=== PATIENT | female | born 1940 | race Caucasian/White ===

== ENCOUNTER 2018-12-08 20:47 | Emergency (ER) | payer MEDICARE ==
[~2018-12-08] VITALS: Ht 160 cm; Wt 95.3 kg
[~2018-12-08 20:47] MED LIST: ADVAIR HFA 115-12 GM; AMITRIPTYLINE H10 MG PO; AMITRIPTYLINE H25 MG PO; BYSTOLIC5 MG PO; DEXILANT60 MG PO; DYMISTA NASAL S23 GM; FISH OIL PO; METAMUCIL PO; Z.0.BYSTOLIC5 MG PO; Z.0.DEXILANT60 MG PO; [UNRECOGNIZED DRUG - CODE] IH
--- OUTSIDE RECORDS SUMMARY | 2018-12-08 20:49 | XMS REPORT | Clinical Summary ---
Author Author [facility] Organization [facility] Address Unknown Phone Unavailable Care Team Providers Care Service Superintendent Name Role Phone Osmar Dunbar MD PCP Allergies Comments Active Allergy Reactions Severity Noted Date Azithromycin 04/14/2017 Clonazepam 04/14/2017 Doxycycline rashes Gemifloxacin 04/14/2017 Humibid Meloxicam 04/14/2017 DEXOCOLOYINE, HUMBID Other 04/14/2017 Metoclopramide Hcl 04/14/2017 Shellfish Derived Anaphylaxis High 04/14/2017 Medications End Date Status Medication Sig Dispensed Refills Start Date Active BYSTOLIC 5 mg tablet TK 1 T PO D 2 8 Active HYDROcodone-acetaminophen TK 1 T PO Q 4 0 (NORCO) 10-325 mg per H 8 tablet Active celecoxib (CeleBREX) 200 TK 1 C PO BID 2 MG capsule WC 8 Active levocetirizine (XYZAL) 5 levocetirizin 0 MG tablet e 5 mg tablet Active gabapentin (NEURONTIN) gabapentin 0 300 mg capsule 300 mg capsule Active zolpidem (AMBIEN) 5 MG take 1 tablet 0 tablet at bedtime as needed for sleep Active ondansetron (ZOFRAN) 4 MG TAKE 1 TABLET 0 tablet PO Q8HRS PRN N/V Active naloxegol (MOVANTIK) 25 take 1 tablet 0 mg tablet tablet every morning 1 hr before breakfast on empty stomach for constipation Active diclofenac (FLECTOR) 1.3 Apply 1 patch 0 % patch 12 hour twice a day by transdermal route. Active nortriptyline (PAMELOR) nortriptyline 0 25 MG capsule 25 mg capsule Active montelukast (SINGULAIR) montelukast 0 10 mg tablet 10 mg tablet Active methylPREDNISolone methylprednis 0 (MEDROL DOSEPAK) 4 mg olone 4 mg tablet tablets in a dose pack Active azelastine-fluticasone Dymista 137 0 (DYMISTA) 137-50 mcg-50 mcg/spray mcg/spray spray,non-aerosol nasal spray Active dexlansoprazole Dexilant 60 0 (DEXILANT) 60 mg capsule mg capsule, delayed release Active cyclobenzaprine cyclobenzapri 0 (FLEXERIL) 10 mg tablet ne 10 mg tablet Active ciprofloxacin HCl (CIPRO) ciprofloxacin 0 250 MG tablet 250 mg tablet Active acetaminophen-codeine acetaminophen 0 (TYLENOL WITH CODEINE #3) 300 300-30 mg per tablet mg-codeine 30 mg tablet Active psyllium husk (METAMUCIL) Metamucil 0 0.4 gram capsule Active lansoprazole (PREVACID) Take 15 mg by 0 15 MG capsule mouth daily. Active Problems Problem Noted Date Osteoarthritis of right hip 05/16/2018 Arthropathy of left shoulder 07/28/2017 Degeneration of lumbar intervertebral disc 05/11/2017 Osteoarthritis of hip 05/11/2017 Arthropathy of right hip 05/09/2017 Cervical spondylosis without myelopathy 05/09/2017 Brachial neuritis 04/28/2017 Carpal tunnel syndrome 04/28/2017 Abnormal finding of trunk 04/28/2017 Displacement of cervical intervertebral disc without myelopathy 04/28/2017 Enthesopathy of hip region 04/28/2017 Enthesopathy of knee 04/28/2017 Fibromyositis 04/28/2017 Idiopathic progressive polyneuropathy 04/28/2017 Inflammatory disorder of extremity 04/28/2017 Lumbosacral spondylosis without myelopathy 04/28/2017 Lumbar spondylosis with myelopathy 04/28/2017 Meralgia paresthetica 04/28/2017 Morbid obesity 04/28/2017 Neuralgia 04/28/2017 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 04/28/2017 Disorder of sacroiliac joint 04/28/2017 Trigeminal neuralgia 04/28/2017 Cervical radiculopathy 04/15/2017 Encounters Care Team Description Date Type Specialty Austin Hood MD Primary osteoarthritis of right hip (Primary Dx) 09/06/2018 Lab Lab Edmond Deal MD 05/16/2018 Anesthesia Orthopedic Surgery Event Austin Hood MD RIGHT TOTAL HIP ARTHROPLASTY 05/16/2018 Surgery Orthopedic Surgery Austin Hood MD Primary osteoarthritis of right hip 05/16/2018 Hospital Orthopedic Surgery - Encounter 05/17/2018 after 12/07/2017 Family History Medical History Relation Name Comments Asthma Brother Cancer Brother Arthritis Mother Heart disease Mother Relation Name Status Comments Brother Mother Social History Date Tobacco Use Types Packs/Day Years Used Never Smoker Smokeless Tobacco: Never Used Drinks/Week oz/Week Comments Alcohol Use No Sex Assigned at Date Recorded Not on file Industry Job Start Date Occupation Not on file Not on file Not on file Travel End Travel History Travel Start No recent travel history available. Last Filed Vital Signs Reading Time Taken Comments Vital Sign 117/69 05/17/2018 9:03 AM [employer] Blood Pressure 80 05/17/2018 9:03 AM [employer] Pulse 36.3 C (97.3 F) 05/17/2018 9:02 AM [employer] Temperature 17 05/17/2018 9:02 AM [employer] Respiratory Rate 92% 05/17/2018 9:03 AM [employer] Oxygen Saturation - - Inhaled Oxygen Concentration 91.6 kg (202 lb) 05/16/2018 10:51 AM [employer] Weight 157.5 cm (5' 2") 05/16/2018 10:51 AM [employer] Height 36.95 05/16/2018 10:51 AM [employer] Body Mass Index Plan of Treatment Health Maintenance Due Date Last Done Comments COLONOSCOPY SCREENING 1992 SHINGLES VACCINES (#1) 1992 65+ PNEUMOCOCCAL VACCINE 09/10/2007 (1 of 2 - PCV13) INFLUENZA VACCINE 11/09/2018 Implants Device Identifier Shelf Expiration Date Model / Serial / Lot Implanted Type Area Manufactur er 100-0001 / / [employer] Fee Posterior Hip N/A: N/A Implanted: Qty: 1 on 05/16/2018 by Implant Austin Hood MD at [facility] 11/14/2027 11 [id number] / / [id number] Head Fml Tpr I Modlr W/O Skirt Hip Joint Right: Hip [employer] Co-Cr 36x-6mm - [id number] Implants Implanted: Qty: 1 on 05/16/2018 by Austin Hood MD at [facility] 02/10/2028 [id number] / / [id number] 3 Hole G7 [place] Acetabular Shell IPM Right: Hip BIOMET, - [id number] [employer]PL[employer] Implanted: Qty: 1 on 05/16/2018 by DEVICES Austin Hood MD at [facility] 02/22/2023 [id number] / / [id number] Liner G7 Neutral Arcomxl F36 - IPM Right: Hip BIOMET, [id number] [employer]PL[employer] Implanted: Qty: 1 on 05/16/2018 by Austin Contreras MD at [facility] 02/10/2028 [id number] / / [id number] Tprlc 133 Type1 Pps Ho 10.0, IPM Right: Hip BIOMET, [place] Complete Stem - [id number] [employer] Implanted: Qty: 1 on 05/16/2018 by Austin Contreras MD at [facility] 01/09/2028 [id number] / / [id number] Screw Bone Slf-Tap 6.5x25mm Trilogy Orthopedic Right: Hip [employer] - [id number] Trauma Implanted: Qty: 1 on 05/16/2018 by Implants Austin Hood MD at [facility] Procedures Comments Procedure Name Priority Date/Time Associated Diagnosis C-REACTIVE PROTEIN Routine 09/06/2018 Primary osteoarthritis of 11:30 AM CDT right hip HC COMPLETE BLD COUNT Routine 09/06/2018 Primary osteoarthritis of W/AUTO DIFF 11:30 AM CDT right hip SEDIMENTATION RATE Routine 09/06/2018 Primary osteoarthritis of 11:30 AM CDT right hip ND AN SPINAL BLOCK Routine 05/18/2018 POST-OP PAIN 9:52 AM [employer] Procedure Note - Edmond Deal - 05/18/2018 9:52 AM [employer] Spinal Block Performed by: Edmond Deal MD Authorized by: Edmond Deal MD Patient Location: Pre-op Start Time: 05/18/2018 12:10 PM End Time: 05/18/2018 12:15 PM Reason for Block: at surgeon's request, post-op pain management Staff: Anesthesio logist: Edmond Deal MD Performed by: Anesthesio logist Preprocedu re: patient identified , IV checked, site and side verified, risks and benefits discussed, procedure verified, surgical consent complete, patient position confirmed, monitors and equipment checked and pre-op evaluation complete TIme Out Performed: 05/18/2018 12:10 PM Spinal Block: Patient Position: Sitting Prep: Betadine Monitoring : Continuous pulse oximetry, blood pressure monitoring and heart rate Approach: Right paramedian Interspace : L3-4 Injection Technique: Single injection Needle: Needle Type: Pencil-tip Needle Gauge: 25 G Catheter Type: Open end Assessment : Block assessment : No apparent complicati ons and patient tolerated procedure well Post procedure: Patient returned to supine position HC COMPLETE BLD COUNT Routine 05/17/2018 W/AUTO DIFF 5:00 AM [employer] POC GLUCOSE Routine 05/16/2018 2:26 PM [employer] XR PELVIS 1 OR 2 VW Routine 05/16/2018 2:02 PM [employer] SURGICAL PATHOLOGY Routine 05/16/2018 REQUEST 1:55 PM [employer] ND AN ELECTIVE Routine 05/16/2018 ENDOTRACHEAL AIRWAY 1:02 PM [employer] Procedure Note - Kt Morgan CRNA - 05/16/2018 1:02 PM [employer] ANESTHESIA INTUBATION Date/Time: 05/16/2018 12:39 PM Performed by: Kt Morgan CRNA Authorized by: Edmond Deal MD Location: OR Urgency: Elective Difficult Airway: No Preoxygena raysa with 100% O2: Yes C-spine Precaution s Maintained Throughout : Yes Mask Ventilatio n: Easy mask Final Airway Type: Endotrache al airway Final Endotrache al Airway: ETT Cuffed: Yes Technique Used: Video laryngosco py Devices/Me thods Used in Placement: Intubatin g stylet Insertion Site: Oral Blade Type: Bisi Laryngosco pe Blade/Vide olaryngosc ope Blade Size: 3 ETT Size (mm): 7.0 Cuff at minimum occlusion pressure: Yes Measured from: Lips ETT to Lips (cm): 21 Placement Verified by: CO2 detection, direct visualizat ion and equal breath sounds Laryngosco pic view: Grade I - full view of glottis Rapid Sequence Induction (RSI): No Modified RSI: No Number of Attempts at Approach: 1 ARTHROPLASTY, HIP, TOTAL 05/16/2018 Primary osteoarthritis of 12:31 PM [employer] right hip Case Notes [employer] Special Needs [employer] POC GLUCOSE Routine 05/16/2018 11:20 AM [employer] TYPE AND SCREEN Routine 05/16/2018 10:44 AM [employer] after 12/07/2017 Results * Sedimentation rate (09/06/2018 11:30 AM CDT) Sedimentation 34 (H) 0 - 20 mm/hr [facility] Specimen Blood Performing Organization Address City/[facility]/Zipcode Phone Number [facility] DEPARTMENT OF [address] [place] [address] PATHOLOGY AND GENOMIC MEDICINE [address] * CBC with platelet and differential (09/06/2018 11:30 AM CDT) Only the most recent of 2 results within the time period is included. WBC 5.66 4.50 - 11.00 k/uL [facility] RBC 4.20 4.20 - 5.50 m/uL [facility] HGB 12.2 12.0 - 16.0 g/dL [facility] HCT 39.5 37.0 - 47.0 % [facility] MCV 94.0 82.0 - 100.0 fL [facility] MCH 29.0 27.0 - 34.0 pg [facility] MCHC 30.9 (L) 31.0 - 37.0 g/dL [facility] RDW - SD 47.4 37.0 - 55.0 fL [facility] MPV 9.6 8.8 - 13.2 fL [facility] Platelet count 200 150 - 400 k/uL [facility] Nucleated RBC 0.00 /100 WBC [facility] Neutrophils 62.2 39.0 - 69.0 % [facility] Lymphocytes 25.4 25.0 - 45.0 % [facility] Monocytes 8.8 0.0 - 10.0 % [facility] Eosinophils 2.8 0.0 - 5.0 % [facility] Basophils 0.4 0.0 - 1.0 % [facility] Immature 0.4Comment: "Immature 0.0 - 1.0 % [place] granulocytes granulocytes" (promyelocytes, [facility] myelocytes, metamyelocytes) [facility] Specimen Blood Performing Organization Address City/[facility]/Zipcode Phone Number [facility] [place] [address] PATHOLOGY AND GENOMIC MEDICINE [place] [facility] [address] [place] [address] * C-reactive protein (09/06/2018 11:30 AM CDT) [facility] CRP 0.55 (H) 0.00 - 0.50 mg/dL [facility] Specimen Plasma specimen Performing Organization Address City/[facility] Phone Number [facility] [place] [address] PATHOLOGY AND GENOMIC MEDICINE [address] * POC glucose (05/16/2018 2:26 PM [employer]) Only the most recent of 2 results within the time period is included. [facility] POC glucose 125 (H) 65 - 99 mg/dL [place] Comment: [facility] No Action Needed HOSPITAL Meter ID: [id number] Proof Coins Inspector: Adrian Herrera Specimen Performing Organization Address [facility] Phone Number [facility] [place] [address] PATHOLOGY AND GENOMIC MEDICINE [address] * XR Pelvis 1 Or 2 Vw (05/16/2018 2:02 PM [employer]) Specimen Narrative Performed At EXAMINATION:XR PELVIS 1 OR 2 VW [facility] INDICATION: COMPARISON:None IMPRESSION: 1.Intraoperative radiographs for a right total hip arthroplasty in progress. [facility]-[id number] Procedure Note Hm Interface, Radiology Results Incoming - 05/16/2018 2:07 PM [employer] EXAMINATION: XR PELVIS 1 OR 2 VW INDICATION: COMPARISON:None IMPRESSION: 1. Intraoperative radiographs for a right total hip arthroplasty in progress. [facility]-[id number] Performing Organization Address City/[facility]/Zipcode Phone Number [facility] [address] [place] [address] * Surgical pathology request (05/16/2018 1:55 PM [employer]) [facility] DEPARTMENT OF PATHOLOGY AND GENOMIC MEDICINE Surgical See link below for PDF Lab [facility] DEPARTMENT pathology Report OF PATHOLOGY report AND GENOMIC MEDICINE Result status This is Final Report for [facility] DEPARTMENT [id number] OF PATHOLOGY AND GENOMIC MEDICINE Specimen Performing Organization Address City/State/Zipcode Phone Number [facility] DEPARTMENT OF [address] [place] [address] PATHOLOGY AND GENOMIC MEDICINE * Type and screen (05/16/2018 10:44 AM [employer]) ABO grouping O [facility] Rh type POS [facility] Antibody screen NEG [place] (gel) [facility] Specimen Blood Performing Organization Address City/State/Zipcode Phone Number [facility] DEPARTMENT OF [address] [place] [id number] PATHOLOGY AND GENOMIC MEDICINE [address] [address] HOSPITAL after 12/07/2017 Insurance Type Payer Benefit Subscriber ID Effective Phone Address Plan / Dates Group Medicare MEDICARE MEDICARE xxxxxxxxxxx 2007-P [place], PART A AND resent [place] B Commercial AARP AARP xxxxxxxxxxx 2016-P SUPPLEMENT resent Liability Advance Directives For more information, please contact: [phone] Patient Museum Curator Explanation Type Date Recorded Advance Directives, 05/16/2018 8:51 AM Living Will and Medical Power of Search Director
[2018-12-08] MEDS ORDERED: MORPHINE SULFATE 2 MG/ML SYR 1ML IV ONE (21:05)
[2018-12-08] MEDS ORDERED: ONDANSETRON HCL INJ 2MG/ML 2ML 2 MG/ML VIAL IV ONE (21:05)
[2018-12-08] MEDS ORDERED: ONDANSETRON HCL INJ 2MG/ML 2ML 2 MG/ML VIAL ONE (21:26)
[2018-12-08] MEDS ORDERED: MORPHINE SULFATE INJ 4 MG/ML INJ 1ML ONE (21:27)
[2018-12-08] MEDS ORDERED: DIPHENHYDRAMINE HCL INJ 50 MG/ML VIAL IV ONE (21:30)
[2018-12-08] MEDS ORDERED: METHYLPREDNISOLONE SOD SUCC 125 MG/2ML VIAL IV ONE (21:30)
[2018-12-08] MEDS ORDERED: SODIUM CHLORIDE 0.9% 50ML 50 ML ONE (21:33)
[2018-12-08] MEDS ORDERED: IOPAMIDOL 370 MG/ML 200 ML INFUS..BTL INJ ONE (21:33)
[2018-12-08] MEDS ORDERED: METHYLPREDNISOLONE SOD SUCC 125 MG/2ML VIAL ONE (21:53)
--- NOTE | 2018-12-08 23:11 | Diagnostic Imaging Report ---
EXAMINATION: CT of the chest, abdomen and pelvis with contrast. TECHNIQUE: Spiral CT images of the chest, abdomen and pelvis were performed from the lung apices to the lesser trochanters after the intravenous administration of 100 cc Isovue-370.. Coronal and sagittal reformatted images were obtained. The chest was scanned using pulmonary embolus protocol COMPARISON: None. CLINICAL HISTORY:Left-sided chest and abdominal pain DISCUSSION: CHEST: Vasculature: The main pulmonary artery, right and left pulmonary arteries, and their visualized lobar and segmental branches are patent, without filling defect. The pulmonary outflow tract is of normal caliber. There is no ectasia or aneurysmal dilatation of the thoracic aorta. Great vessel origins are of normal caliber and configuration. LUNGS AND AIRWAYS: There are patchy groundglass opacities with intervening regions of hyperlucency compatible with diffuse air trapping. 5 mm left upper lobe nodule seen on series 4 image 42. 4 mm left lower lobe nodule seen on series 4 image 74. 4 mm right lower lobe nodule seen on series 4 image 87. Trachea, mainstem bronchi, and central lobar and segmental bronchi are patent. PLEURA: No pleural effusion or pneumothorax. HEART AND MEDIASTINUM: 1.7 cm heterogeneous nodule in the right thyroid lobe. No axillary, hilar, or mediastinal lymphadenopathy. Mild cardiomegaly without pericardial effusion. LYMPH NODES: No significant mediastinal, hilar or axillary lymphadenopathy is seen. BONES AND SOFT TISSUES: Osseous structures are discussed below. ABDOMEN/PELVIS: HEPATOBILIARY:No focal hepatic lesion or intrahepatic biliary ductal dilatation. The gallbladder has been removed. SPLEEN: No splenomegaly. PANCREAS: No focal masses or ductal dilatation. ADRENALS: No adrenal nodules. KIDNEYS/URETERS: No hydronephrosis, stones, or solid mass lesions. PELVIC ORGANS/BLADDER: The urinary bladder is incompletely distended and poorly evaluated. Excreted contrast material opacifies the dependent portion. Evaluation of the pelvic viscera is markedly limited secondary to extensive streak artifact from right hip prosthesis. PERITONEUM/RETROPERITONEUM: No free air or fluid. LYMPH NODES: No pelvic sidewall, retroperitoneal, or mesenteric lymphadenopathy. VESSELS: The abdominal aorta, major branch vessels, and iliac arterial systems are patent with mild atherosclerotic calcification. Portal vein, splenic vein, and central superior mesenteric vein are patent. GI TRACT: The large bowel shows no evidence of distention or wall thickening. Gas and fecal material are noted throughout. The appendix is normal. There is no small bowel dilatation to suggest obstruction. BONES AND SOFT TISSUES: Postsurgical changes of total right hip arthroplasty. The bones are diffusely osteopenic with multilevel degenerative disc changes and facet arthropathy of the lumbar spine. Similarly, degenerative disc changes of the partially visualized cervical spine as well as the thoracic spine are noted. Age-indeterminate mild anterior compression deformity of T6 with approximately 20% loss of anterior vertebral body height. No focal soft tissue abnormalities. IMPRESSION: No pulmonary embolus to the level of the segmental branch pulmonary arteries Diffuse air trapping suggestive of small airways disease. Scattered bilateral pulmonary nodules measuring up to [address] scan of the chest without contrast is suggested in one year to assess for stability if the patient is at high risk of malignancy. 1.7 cm heterogeneous right thyroid nodule may be further evaluated by nonemergent ultrasound. No acute intra-abdominal or pelvic CT abnormalities. Age indeterminate though likely chronic mild anterior compression deformity of T6. Correlate for point tenderness which would suggest relative acuity. Signed by: Dr. Austin Guevara M.D. on 12/08/2018 11:08 PM
--- NOTE | 2018-12-08 23:13 | Diagnostic Imaging Report ---
Examination: PA and lateral radiographs of the chest. COMPARISON: CT chest same day, 2 view chest radiograph 07/12/2016 INDICATION: Shortness of breath, chest pain DISCUSSION: Lungs are well-inflated and without focal airspace consolidation, pleural effusion, or pneumothorax. Right hemidiaphragmatic eventration. Tortuous thoracic aorta with otherwise unremarkable cardiomediastinal contour. No overt pulmonary edema. No acute osseous abnormality. Age-indeterminate anterior compression deformity of T6. IMPRESSION: No acute cardiopulmonary abnormality. Age-indeterminate anterior compression deformity of T6 as seen on comparison CT. Correlate for point tenderness. Signed by: Dr. Austin Guevara M.D. on 12/08/2018 11:10 PM
[2018-12-08] MEDS ORDERED: ULTRAM50 MG PO (23:25)
[2018-12-08] MEDS ORDERED: COLACE100 MG PO (23:25)
[2018-12-08] MEDS ORDERED: PRILOSEC OTC20 MG PO (23:35)
[2018-12-08 23:41] VITALS: BP 121/78
[2018-12-08] MEDS ORDERED: OMEPRAZOLE 20 MG CAP PO PRN (23:45)
== END 2018-12-09 00:10 | disposition home or self-care (01) ==
LOC: FSED 20:47
DX: R07.89 Other chest pain (principal); R10.12 Left upper quadrant pain; I10 Essential (primary) hypertension; E11.9 Type 2 diabetes mellitus without complications; I25.10 Atherosclerotic heart disease of native coronary artery without angina pectoris; R91.8 Other nonspecific abnormal finding of lung field; E04.1 Nontoxic single thyroid nodule
CPT/HCPCS: 71046; 71260; 74177; 93005; 96374; 96376; 99284; J1200; J2270; J2405; J2930; Q9967